=== PATIENT | male | born 1950 | race Caucasian/White ===

== ENCOUNTER 2020-10-01 16:13 | Outpatient (REF) | payer MEDICARE, SELFPAY ==
[2020-10-01 19:11] LABS: HCT 45.5 % (40.0-50.0); HGB 16.1 g/dL (13.5-17.5); MCH 33.1 pg (27.0-33.0); MCHC 35.4 % (32.0-36.0); MCV 93.6 fL (80-95); MPV 9.6 fL (8.0-11.0); Platelet Count 205 10^3/uL (130-400); RBC 4.86 10^6/uL (4.36-5.78); RDW 11.1 % (11.8-14.1); RDW-SD 38.2 fL; WBC 5.53 10^3/uL (4.4-10.8)
[2020-10-01 19:50] LABS: ALT 76 U/L (16-63); AST 58 U/L (15-37); Albumin 4.4 g/dL (3.4-5.0); Alkaline Phosphatase 97 U/L (46-116); Anion Gap 14.4 mmol/L (3-11); BUN 9 mg/dL (7-18); Bilirubin, Total 0.5 mg/dL (0.2-1.0); CO2 24.6 mmol/L (21.0-32.0); CREATININE 0.7 mg/dL (0.70-1.30); Calcium 9.6 mg/dL (8.5-10.1); Chloride 98 mmol/L (98-107); Glucose 106 mg/dL (74-106); HDL Cholesterol 77 mg/dL (40-60); LDL CHOLESTEROL 108 mg/dL (<100); Potassium 3.8 mmol/L (3.5-5.1); Sodium 137 mmol/L (136-145); TSH 2.94 uIU/mL (0.36-3.74); Total Protein 7.5 g/dL (6.4-8.2); Vitamin B12 434 pg/mL (193-986)
== END 2020-10-01 16:14 | disposition home or self-care (01) ==
LOC: NCHCN 16:13
PROVIDERS: PCP Nurse Practitioner Family; Visit Provider Nurse Practitioner Family
DX: I10 Essential (primary) hypertension (principal); Z83.49 Family history of other endocrine, nutritional and metabolic diseases; R41.3 Other amnesia; R41.89 Other symptoms and signs involving cognitive functions and awareness
CPT/HCPCS: 80053; 83721; 85027; 82607; 83718; 84443

== ENCOUNTER 2020-10-08 09:11 | Outpatient (REF) | payer MEDICARE, SELFPAY ==
[2020-10-08 15:34] LABS: Anion Gap 10.8 mmol/L (3-11); BUN 13 mg/dL (7-18); CO2 24.2 mmol/L (21.0-32.0); CREATININE 0.8 mg/dL (0.70-1.30); Chloride 98 mmol/L (98-107); Glucose 111 mg/dL (74-106); Potassium 4.4 mmol/L (3.5-5.1); Sodium 133 mmol/L (136-145)
== END 2020-10-08 09:12 | disposition home or self-care (01) ==
LOC: NCHCN 09:11
PROVIDERS: PCP Nurse Practitioner Family; Visit Provider Nurse Practitioner Family
DX: I10 Essential (primary) hypertension (principal)
CPT/HCPCS: 80048

== ENCOUNTER 2020-11-05 16:22 | Outpatient (REF) | payer MEDICARE, SELFPAY ==
[2020-11-05 21:42] LABS: Anion Gap 9.2 mmol/L (3-11); BUN 9 mg/dL (7-18); CO2 26.8 mmol/L (21.0-32.0); CREATININE 0.9 mg/dL (0.70-1.30); Calcium 9.3 mg/dL (8.5-10.1); Chloride 98 mmol/L (98-107); Glucose 94 mg/dL (74-106); Potassium 4.1 mmol/L (3.5-5.1); Sodium 134 mmol/L (136-145)
== END 2020-11-05 16:23 | disposition home or self-care (01) ==
LOC: NCHCN 16:22
PROVIDERS: PCP Nurse Practitioner Family; Visit Provider Nurse Practitioner Family
DX: I10 Essential (primary) hypertension (principal); R79.89 Other specified abnormal findings of blood chemistry
CPT/HCPCS: 80048

== ENCOUNTER 2023-03-22 16:46 | Inpatient (IN) | payer MEDICARE, SELFPAY ==
[2023-03-22] VITALS (29 sets, daily range): BP systolic 126–188; BP diastolic 77–118; PULSE 60–109; RESP 13–22; TEMP 36.3–37.1; O2SAT 94–100
--- NOTE | 2023-03-22 17:00 | DI.CT_ITS ---
Exam(s) CT HEAD WO EXAM: CT HEAD WO CLINICAL HISTORY: ams. TECHNIQUE: Imaging Protocol: Axial computed tomography images with coronal and sagittal reformatted images were created and reviewed COMPARISON: No exams were available for comparison FINDINGS: Ventricles and Extra axial spaces: Normal in size and morphology for the patient's age. Hemorrhage: None. Cerebral parenchyma: There are areas of decreased attenuation in the white matter consistent with sma ll vessel ischemic disease. 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 No acute territorial inf arct is seen. Midline shift: None. Brainstem/Cerebellum: Normal. Calvarium: Normal. Visualized Paranasal sinuses/Mastoids: Clear. Soft Tissues: Unremarkable. IMPRESSION: 1. No acute intracranial process. 2. Findings were discussed with the emergency department at 6:49 p.m. on 03/22/2023. RADIATION DOSE DELIVERED: Total DLP DATA REPOSITORY: All CT scans at this facility are submitted to the National Radiology Data Registry (NRDR) Dose Index Registry (DIR) with the [employer] (ACR). RADIATION OPTIMIZATION: All CT scans at this facility use at least one of these dose optimization te chniques: automated exposure control; mA and/or kV adjustment per patient size (includes targeted exa ms where dose is matched to clinical indication); or iterative reconstruction.
[2023-03-22 17:11] LABS: BE (Venous) -4 mmol/L (-2-3); HCO3 (Venous) 20 mmol/L (23-28); O2 Sat (Venous) 91 %; TCO2 (Venous) 17 mmol/L (24-29); pCO2 (Venous) 27 mmHg (41-51); pH (Venous) 7.48 (7.31-7.41); pO2 (Venous) 56 mmHg
[2023-03-22 17:14] LABS: Lactate 1.2 mmol/L (0.6-1.4)
[2023-03-22 17:16] LABS: Abs Immature Grans 0.05 10^3/uL (0.0-0.06); Absolute Basophil Count 0.03 10^3/uL (0.0-0.2); Absolute Eosinophil Count 0.22 10^3/uL (0.0-0.7); Absolute Lymphocyte Count 0.62 10^3/uL (1.2-3.4); Absolute Neutrophil Count 7.06 10^3/uL (1.2-6.7); Basophils % 0.3; Eosinophils % 2.6; HCT 44.4 % (40.0-50.0); HGB 15.9 g/dL (13.5-17.5); Immature Grans % 0.6; Lymphocytes % 7.2; MCH 31.6 pg (27.0-33.0); MCHC 35.8 % (32.0-36.0); MCV 88 fL (80-95); MPV 8.7 fL (8.0-11.0); Neutrophils % 82.3; Platelet Count 152 10^3/uL (130-400); RBC 5.03 10^6/uL (4.36-5.78); RDW 11.6 % (11.8-14.1); RDW-SD 37.6 fL; WBC 8.58 10^3/uL (4.4-10.8)
[2023-03-22] MEDS: CEFEPIME 1 GM in Normal Saline 50 ML IVPB (17:18)
[2023-03-22] MEDS: Lactated Ringers 500 ML 1000 ML IV (17:18)
[2023-03-22] MEDS: VANCOMYCIN 1,000 MG in Normal Saline 250 ML 166.6666 MG IVPB (17:30)
[2023-03-22 17:34] LABS: ALT 37 U/L (16-63); AST 31 U/L (15-37); Albumin 3.7 g/dL (3.4-5.0); Alkaline Phosphatase 77 U/L (46-116); Anion Gap 10.3 mmol/L (3-11); BUN 12 mg/dL (7-18); Bilirubin, Total 1.1 mg/dL (0.2-1.0); CO2 19.7 mmol/L (21.0-32.0); CREATININE 1.1 mg/dL (0.70-1.30); Calcium 9.2 mg/dL (8.5-10.1); Chloride 92 mmol/L (98-107); Estimated GFR 70.88 (mL/min/1.73m2); Glucose 110 mg/dL (74-106); Total Protein 7.5 g/dL (6.4-8.2); Troponin I < 50 ng/L (<or=60)
--- NOTE | 2023-03-22 17:34 | W.ED.GENAD ---
Discharge Plan Disposition Patient Disposition: Admit to [facility] Condition: Good Discharge Details Clinical Impression: Hyponatremia Admit Date/Time: 03/22/23 19:04 Admit Provider: Von Rm Attending Provider: Von Rm Primary Care Provider: Maye Lopez ED Provider: Berhane Bello Medical Decision Making Emergent evaluation of altered mental status. History is difficult to obtain from the patient as well as the . The patient reportedly had fever at urgent care but is afebrile here. Initial differential includes sepsis, intracranial process, drug intoxication or withdrawal symptoms. Given that the patient had fever at urgent care and was given Motrin prior to arrival here, I will initiate sepsis protocol including fluids, cultures, broad-spectrum antibiotics. Lab work obtained. Viral testing is negative. Urinalysis does not show signs of infection. His CBC does not demonstrate leukocytosis anemia or thrombocytopenia. His CMP is concerning for hyponatremia. I wonder if this may be related to alcohol use. A head CT was obtained to evaluate for intracranial process such as hydrocephalus. This is unremarkable. He has confusion, but no seizure activity. I have sent urine electrolytes to determine etiology of his hyponatremia. At this time he does not require hypertonic saline. I discussed with the hospitalist and the patient will be admitted to their service for further management. Medical Records Medical records reviewed: Yes I reviewed the patient's medical records. Lab Data Lab results reviewed: Yes I reviewed the patient's lab results. HPI General Date/Time Provider Initiated Documentation: 03/22/23 16:50. Limitations to Documentation: altered mental status. Information obtained by: patient, family and EMS. HPI Narrative: 73-year-old gentleman without known past medical history presents for evaluation of confusion. Patient reports that he is not going to the doctor in many years. He has no known medical diagnoses or takes any medication. He states that his told him he had to come to the doctor. He was evaluated at urgent care earlier. They report that he had a fever. Viral testing and urinalysis were negative. They sent the patient here for further evaluation. The arrives and states that over the last 1 to 2 weeks she has noted that the patient seems more confused. He is sleeping a lot. They deny any trauma. There is questionable daily alcohol use. Related Data Home Medications Medication Instructions Recorded Confirmed Unknown [No Known Home Meds] 03/22/23 03/22/23 Allergies Allergy/AdvReac Type Severity Reaction Status Date / Time No Known Allergies Allergy Unverified 03/22/23 16:59 General Stated Complaint: GenMedical SHARATH: 3 PFSH All Active Problems Discharge planning issues (Acute) DVT prophylaxis (Acute) Hypertension (Chronic) Fever (Acute) Hyponatremia (Acute) Social History Smoking/Tobacco Use Status: Never Smoking risk assessment performed?: Yes Alcohol Intake: current Alcohol Intake frequency: a few times a week Alcohol type: beer Drug use: Never Substance use type: does not use Housing: house Do you feel safe at home: Yes Do you feel safe in your relationship?: Yes Exam Narrative Exam Narrative: Review of Systems: All systems reviewed & are unremarkable except as noted in HPI and below: CONSTITUTIONAL: Alert , confused, unable to answer simple questions Well-developed, no acute distress HEENT: NACT EYES: PERRL, no conjunctival injection EARS: no external abnormality NOSE nares patent MOUTH dry MM NECK: Symmetric, trachea midline, No thyromegaly THROAT oropharynx clear CVS: RRR, No murmurs or gallops. Peripheral pulses 2+ and equal in all extremities Brisk capillary refill in all extremities. No peripheral edema RESP: Unlabored respiratory effort, Clear to auscultation bilaterally No wheezes rales or rhonchi GI: Soft, Nontender, Nondistended, No organomegaly MSK: Extremities with full range of motion, no deformity or TTP SKIN: Warm, Dry. No rashes or lesions. 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 Sensation grossly intact Normal strength throughout Course Vital Signs Vital signs: Vital Signs Temperature 37.1 C 03/22/23 16:46 Pulse 107 H 03/22/23 16:46 Respiratory Rate 17 03/22/23 16:46 Blood Pressure 146/96 H 03/22/23 16:46 Pulse Oximetry 98 03/22/23 16:46 Temperature 37.1 C 03/22/23 16:46 Temperature Source Oral 03/22/23 16:46 Pulse 107 H 03/22/23 16:46 Respiratory Rate 18 03/22/23 16:55 Respiratory Effort Normal 03/22/23 16:55 Respiratory Depth Normal 03/22/23 16:55 Respiratory Pattern Normal 03/22/23 16:55 Blood Pressure 146/96 H 03/22/23 16:46 Blood Pressure Position Sitting 03/22/23 16:46 Pulse Oximetry 95 03/22/23 16:55 Oxygen Delivery Method Room Air 03/22/23 16:55 Oxygen Flow Rate 0 03/22/23 16:46 Pain Level 0 03/22/23 16:46 Lab/Test Results Lab/Test Results: 03/22/23 17:25 Blood Blood Culture - Pending 03/22/23 17:05 Blood Blood Culture - Pending Laboratory Tests Range/Units 03/22/23 17:05 WBC (4.4-10.8) 10^3/uL 8.58 RBC (4.36-5.78) 10^6/uL 5.03 Hgb (13.5-17.5) g/dL 15.9 Hct (40.0-50.0) % 44.4 MCV (80-95) fL 88 MCH (27.0-33.0) pg 31.6 MCHC (32.0-36.0) % 35.8 RDW (11.8-14.1) % 11.6 L Plt Count (130-400) 10^3/uL 152 MPV (8.0-11.0) fL 8.7 Immature Gran % 0.6 Neutrophils % 82.3 Lymphocytes % 7.2 Monocytes % 7.0 Eosinophils % 2.6 Basophils % 0.3 Nucleated RBC % (0.0-0.3) % 0.0 Absolute Neutrophils (1.2-6.7) 10^3/uL 7.06 H Absolute Lymphocytes (1.2-3.4) 10^3/uL 0.62 L Absolute Monocytes (0.1-0.8) 10^3/uL 0.60 Absolute Eosinophils (0.0-0.7) 10^3/uL 0.22 Absolute Basophils (0.0-0.2) 10^3/uL 0.03 VBG pH (7.31-7.41) 7.48 H VBG pCO2 (41-51) mmHg 27 L VBG pO2 mmHg 56 VBG HCO3 (23-28) mmol/L 20 L VBG Total CO2 (24-29) mmol/L 17 L VBG O2 Saturation % 91 VBG Base Excess (-2-3) mmol/L -4 L VBG Lactate (0.6-1.4) mmol/L 1.2 PAWSS Have you Been Recently Intoxicated or Drunk Within the Last 30 days?: No Have you Ever Experienced Previous Episodes of Alcohol Withdrawal?: No Have you ever Experienced Withdrawal Seizures?: No Have you ever Experienced Delirium Tremens(DT)s?: No Have you ever undergone Alcohol Rehabilitation Treatment (i.e, inpt ot outpatient treatment programs)?: No Have you ever Experienced Blackouts?: No Have you ever Combined Alcohol with other Downers within the last 90 days?: No Have you ever Combined Alcohol with any other Substance of Abuse during the last 90 days?: No Result: 0
[2023-03-22 17:36] LABS: Sodium 122 mmol/L (136-145)
[2023-03-22 17:50] LABS: Bilirubin Negative (Negative); Blood Trace-lysed (Negative); Clarity Clear (Clear); Glucose Negative (Negative); Ketones 40 mg/dL (Negative); Leukocyte Esterase Negative (Negative); Nitrite Negative (Negative); Specific Gravity 1.015 (1.005-1.025); Urobilinogen 0.2 mg/dL (Up to 0.2)
[2023-03-22 17:53] LABS: Bacteria Rare HPF (Negative); Crystals Negative HPF (Negative); Epithelial Cells Rare HPF (Negative); Other Cells Rare Renal (Negative); RBC 0-2 HPF (0-2)
[2023-03-22 17:54] LABS: C & S Indicated? C&S Done As Ordered; Casts Negative LPF (Negative); Mucus Moderate (Negative)
[2023-03-22 17:54] LABS: ETHANOL BLOOD < 3.0 mg/dL (<10)
[2023-03-22 18:10] LABS: COVID-19 PCR Negative (Negative); Influenza A PCR Negative (Negative); Influenza B PCR Negative (Negative); RSV PCR Negative (Negative)
[2023-03-22 18:13] LABS: Source NASOPHARYNX
[2023-03-22 18:49] LABS: Creatinine,Urine 180.55 mg/dL; Sodium, Urine 17 mmol/L
[2023-03-22 20:21] LABS: Lactate 1.4 mmol/L (0.6-1.4)
[2023-03-22 20:33] LABS: Anion Gap 7.6 mmol/L (3-11); BUN 13 mg/dL (7-18); CO2 23.4 mmol/L (21.0-32.0); Calcium 8.9 mg/dL (8.5-10.1); Chloride 97 mmol/L (98-107); Estimated GFR 79.47 (mL/min/1.73m2); Glucose 104 mg/dL (74-106); Potassium 3.6 mmol/L (3.5-5.1); Sodium 128 mmol/L (136-145)
--- NOTE | 2023-03-22 22:12 | W.PM.HP.N ---
Date of service: 03/22/23 Time of Service: 22:35 Assessment and Plan Assessment and plan (1) Hyponatremia: Status: Acute Assessment and plan: This appears to be hypotonic hyponatremia. Clinically he is euvolemic, though he did increase the sodium after hydration and his urine sodium is quite low suggesting and element of dehydration as the cause. I do think this was the cause of his mental status changes as he seems to have improved along with the sodium increase. He also did indorse drinking a lot of water in the past couple weeks as he has been drinking less alcohol, and high risk alcohol consumption prior to the past 2 weeks, so there may also be some polydypsia. No indication for hypertonic saline now. Fluid restrict for now. (2) Fever: Status: Acute Assessment and plan: This is documented from [facility] but has not recurred. Normal WBC and procacitonin reassuing. Labs not c/w anaplasmosis. He was cultured and started on empiric antibiotics, continue until cultures negative at ~48hr. STop after that if still no signs infection. Qualifiers: Fever type: unspecified Qualified Code(s): R50.9 - Fever, unspecified (3) Hypertension: Status: Chronic Assessment and plan: BP is quite high. He has not seen a doctor in hears. Start ARB and titrate. Add CCB next, avoid diuretic given low sodium. Qualifiers: Hypertension type: primary hypertension Qualified Code(s): I10 - Essential (primary) hypertension (4) Alcohol use: Status: Acute Assessment and plan: High risk use, denies symptoms of AUD. I encouraged moderation, discussed. (5) DVT prophylaxis: Status: Acute Assessment and plan: LMWH (6) Discharge planning issues: Status: Acute Assessment and plan: As above I think 48 hours monitoring given initial presentation of shaking with fever is prudent. He will need to establish with a PCP upon discharge. History of Present Illness History of Present Illness Chief Complaint: deminished mental status Narrative: 73 yo M with no known chronic medical history, but who hasn't had medical care in over 10 years, presented to [facility] earlier on the day of admission with 1-2 weeks of feeling cloudy headed and low energy. Upon arrival he was feeling some shakiness and warmth, did not feel an overt fever, but tempurature documented at 102.9. He was given 400mg of ibuprofen and sent to the ED. He cannot identify a trigger for his symptoms. No change in activity or diet. He did cut back on his usual alcohol since he started feeling off, has only had 1-2 beers during the past week rather than his usual 3-4/night and has been drinking more water instead. He has never had withdrawal symptoms. He had not abnormal movement or tremor today. No headache, cold symptoms, or other signs of focal infection. Review of Systems Constitutional Constitutional: Denies anorexia, Denies body ache(s), Reports chills, Reports fatigue, Denies fever(s), Denies headache(s), Reports lethargy, Denies poor appetite, Denies weight gain and Denies weight loss Eyes Eyes: Denies change in vision, Denies diplopia and Denies irritation ENT Ears, Nose, Mouth, and Throat: Denies dizziness, Denies headache(s), Denies nasal congestion, Denies nasal discharge and Denies sore throat Cardiovascular Cardiovascular: Denies chest pain, Denies leg edema, Denies palpitations and Denies orthopnea Respiratory Respiratory: Denies cough, Denies excessive phlegm production and Denies wheezing Gastrointestinal Gastrointestinal: Denies abdominal pain, Denies melena, Denies hematochezia, Denies constipation, Denies heartburn, Denies diarrhea, Denies nausea and Denies vomiting Genitourinary Genitourinary: Denies hematuria, Denies dysuria and Denies urinary incontinence Musculoskeletal Musculoskeletal: Denies arthralgias and Denies joint swelling Integumentary/Breasts Skin/Breast: Denies rash and Denies skin ulcer Neurologic Neurologic: Denies dizziness, Denies headache(s) and Denies sensory deficit Psychiatric Psychiatric: Denies depression, Denies mood swings and Denies hallucinations Endocrine Endocrine: Reports fatigue and Denies palpitations Hematologic/Lymphatic Hematologic/Lymphatic: Denies easy bleeding Allergic/Immunologic Allergic/Immunologic: Denies wheezing PFSH All Active Problems (Updated 03/23/23 @ 01:09 by Von Rm) Alcohol use (Acute) Discharge planning issues (Acute) DVT prophylaxis (Acute) Hypertension (Chronic) Fever (Acute) Hyponatremia (Acute) Surgical History Status post left shoulder hemiarthroplasty Family History Mother Cancer from cancer in brain, from lungs? Father Alcohol use disorder Social History Smoking/Tobacco Use Status: Never Smoking risk assessment performed?: Yes Alcohol Intake: current Alcohol Intake frequency: a few times a week Alcohol type: beer Drug use: Never Substance use type: does not use Housing: house Do you feel safe at home: Yes Do you feel safe in your relationship?: Yes Additional Social history: Lives with Nova on [address]. Retired from working at [employer]. Has a [employer] Meds Allergies and Home Medications Allergies Allergy/AdvReac Type Severity Reaction Status Date / Time No Known Allergies Allergy Unverified 03/22/23 16:59 Home Medications Medication Instructions Recorded Confirmed Type Unknown [No Known Home Meds] 03/22/23 03/22/23 History Exam Narrative Exam Narrative: GEN: Alert and oriented x 3, pleasant and cooperative, gives linear history. No acute distress at rest. HEENT: Head atraumatic. Conjunctiva clear, no icterus. PEERL, EOMI. no rhinorrhea. MMM, OP benign. Neck is supple with no masses or lymphadenopathy, trachea midline LUNGS: CTAB with normal effort CV: RRR with no murmurs, gallops, or rubs. ABD: +BS, soft, NT/ND, no masses EXT: no cyanosis, clubbing, or edema MSK: No joint redness or swelling NEURO: CN 2-12 grossly intact. Normal movement and sensation of 4 extremities. Symmetric DTRs. Normal speech and coordination SKIN: No rashes or open wounds. PSYCH: normal mood and affect, nl thought process Results Imaging Imaging Studies: Head CT: . No acute intracranial process. Labs 03/22/23 17:05 03/22/23 20:18 Labs: Laboratory Results - last 24 hr 03/22/23 03/22/23 03/22/23 17:05 17:25 17:40 WBC 8.58 RBC 5.03 Hgb 15.9 Hct 44.4 MCV 88 MCH 31.6 MCHC 35.8 RDW 11.6 L Plt Count 152 MPV 8.7 Immature Gran % 0.6 Neutrophils % 82.3 Lymphocytes % 7.2 Monocytes % 7.0 Eosinophils % 2.6 Basophils % 0.3 Nucleated RBC % 0.0 Absolute Neutrophils 7.06 H Absolute Lymphocytes 0.62 L Absolute Monocytes 0.60 Absolute Eosinophils 0.22 Absolute Basophils 0.03 VBG pH 7.48 H VBG pCO2 27 L VBG pO2 56 VBG HCO3 20 L VBG Total CO2 17 L VBG O2 Saturation 91 VBG Base Excess -4 L VBG Lactate 1.2 Sodium 122 L* Potassium 4.0 Chloride 92 L Carbon Dioxide 19.7 L Anion Gap 10.3 BUN 12 Creatinine 1.1 Est GFR (CKD-EPI 2020) 70.88 Glucose 110 H Calcium 9.2 Total Bilirubin 1.1 H AST 31 ALT 37 Alkaline Phosphatase 77 Troponin I < 50 Total Protein 7.5 Albumin 3.7 Procalcitonin 1.0 Urine Color Yellow Urine Clarity Clear Urine pH 6.0 Ur Specific [place] 1.015 Urine Protein Trace H Urine Ketones 40 H Urine Blood Trace-lysed H Urine Nitrite Negative Urine Bilirubin Negative Urine Urobilinogen 0.2 Ur Leukocyte Esterase Negative Urine RBC 0-2 Urine WBC 3-5 Ur Epithelial Cells Rare Urine Crystals Negative Urine Bacteria Rare Urine Casts Negative Urine Mucus Moderate Urine Other Rare Renal Ur Culture Indicated? C&S Done As Ordered Ur Random Creatinine Ur Random Sodium Urine Glucose Negative Ethyl Alcohol < 3.0 COVID-19 Source NASOPHARYNX SARS-CoV-2 (PCR) Negative Influenza Type A (PCR) Negative Influenza Type B (PCR) Negative RSV (PCR) Negative 03/22/23 03/22/23 17:50 20:18 WBC RBC Hgb Hct MCV MCH MCHC RDW Plt Count MPV Immature Gran % Neutrophils % Lymphocytes % Monocytes % Eosinophils % Basophils % Nucleated RBC % Absolute Neutrophils Absolute Lymphocytes Absolute Monocytes Absolute Eosinophils Absolute Basophils VBG pH VBG pCO2 VBG pO2 VBG HCO3 VBG Total CO2 VBG O2 Saturation VBG Base Excess VBG Lactate 1.4 Sodium 128 L Potassium 3.6 Chloride 97 L Carbon Dioxide 23.4 Anion Gap 7.6 BUN 13 Creatinine 1.0 Est GFR (CKD-EPI 2020) 79.47 Glucose 104 Calcium 8.9 Total Bilirubin AST ALT Alkaline Phosphatase Troponin I Total Protein Albumin Procalcitonin Urine Color Urine Clarity Urine pH Ur Specific [place] Urine Protein Urine Ketones Urine Blood Urine Nitrite Urine Bilirubin Urine Urobilinogen Ur Leukocyte Esterase Urine RBC Urine WBC Ur Epithelial Cells Urine Crystals Urine Bacteria Urine Casts Urine Mucus Urine Other Ur Culture Indicated? Ur Random Creatinine 180.55 Ur Random Sodium 17 Urine Glucose Ethyl Alcohol COVID-19 Source SARS-CoV-2 (PCR) Influenza Type A (PCR) Influenza Type B (PCR) RSV (PCR) Last Vital Signs Temp 36.3 C L 03/22/23 21:12 Pulse 66 03/22/23 21:12 Resp 16 03/22/23 21:12 BP 188/89 H 03/22/23 21:12 Pulse Ox 100 03/22/23 21:12 PAWSS Have you Been Recently Intoxicated or Drunk Within the Last 30 days?: No Have you Ever Experienced Previous Episodes of Alcohol Withdrawal?: No Have you ever Experienced Withdrawal Seizures?: No Have you ever Experienced Delirium Tremens(DT)s?: No Have you ever undergone Alcohol Rehabilitation Treatment (i.e, inpt ot outpatient treatment programs)?: No Have you ever Experienced Blackouts?: No Have you ever Combined Alcohol with other Downers within the last 90 days?: No Have you ever Combined Alcohol with any other Substance of Abuse during the last 90 days?: No Result: 0 Time Spent Time spent with Patient: 55-74 minutes Time was spent: preparing to see the patient(eg.review tests), obtaining and/or reviewing separately otained hiistory, ordering medications,tests, procedures, referring, communicating with other health assisted living care manager, indepentently interpreting results and counseling the patient
[2023-03-23] VITALS (13 sets, daily range): BP systolic 118–200; BP diastolic 70–90; PULSE 83–109; RESP 16–19; TEMP 36.3–40.3; O2SAT 96–100
--- NOTE | 2023-03-23 | DI.US_ITS ---
Exam(s) US ABDOMEN EXAM: US ABDOMEN CLINICAL HISTORY: question of cirrhosis TECHNIQUE: Ultrasound abdomen performed using standard protocol. COMPARISON: No exams were available for comparison FINDINGS: LIVER: Left lobe somewhat obscured by overlying bowel gas. Normal size. Slightly increased echogeni city. Echotexture appears homogeneous. No nodularity of the liver contour. No focal liver lesions are seen. Hepatopetal flow in the portal vein. GALLBLADDER: No evidence of cholelithiasis. No evidence of wall thickening. No pericholecystic fluid identified. CRYSTAL'S SIGN: Negative. BILIARY SYSTEM: No intrahepatic or extrahepatic biliary ductal dilation. KIDNEYS: Kidneys are symmetric in size. No evidence of renal calculi. No evidence of hydronephrosis. No renal mass or cyst identified. Focal area of scarring laterally in the right kidney. PANCREAS: Normal where visualized. SPLEEN: Not enlarged. ABDOMINAL AORTA AND IVC: Visualized portions normal caliber. ASCITES: None seen. IMPRESSION: Mildly increased liver echogenicity may indicate hepatic steatosis. No findings to suggest cirrhosis . DATA REPOSITORY:
--- NOTE | 2023-03-23 | DI.RAD_ITS ---
Exam(s) XR PORTABLE CHEST AP EXAM: XR PORTABLE CHEST AP CLINICAL HISTORY: fever, ? PNA TECHNIQUE: 2D digital imaging was performed of the chest. One image was obtained. An AP view was ob tained. COMPARISON: No exams were available for comparison FINDINGS: MEDIASTINUM: Normal. HEART: Normal. PULMONARY VASCULATURE: Normal. LUNGS: Clear. PLEURAL SPACE: No pleural effusion or pneumothorax. BONE:Within normal limits for the patient's age. OTHER FINDINGS:Normal. IMPRESSION: No acute pulmonary findings. DATA REPOSITORY: RADIATION DOSE DELIVERED:
[2023-03-23 05:12] LABS: Abs Immature Grans 0.01 10^3/uL (0.0-0.06); Absolute Basophil Count 0.01 10^3/uL (0.0-0.2); Absolute Lymphocyte Count 0.42 10^3/uL (1.2-3.4); Absolute Monocyte Count 0.28 10^3/uL (0.1-0.8); Basophils % 0.2; HCT 45.5 % (40.0-50.0); Immature Grans % 0.2; Lymphocytes % 8.4; MCH 31.3 pg (27.0-33.0); MCHC 35.2 % (32.0-36.0); MCV 89 fL (80-95); Monocytes % 5.6; Neutrophils % 85.6; Platelet Count 101 10^3/uL (130-400); RBC 5.11 10^6/uL (4.36-5.78); RDW 11.5 % (11.8-14.1); RDW-SD 37.4 fL; WBC 5.02 10^3/uL (4.4-10.8)
[2023-03-23 05:25] LABS: Vancomycin, Random 5.3 ug/mL
[2023-03-23] MEDS: Multivitamin w/Minerals TAB 1 TAB PO (08:23)
[2023-03-23] MEDS: Thiamine 100 MG TAB PO (08:23)
[2023-03-23 08:45] LABS: Anion Gap 8.3 mmol/L (3-11); BUN 12 mg/dL (7-18); CO2 22.7 mmol/L (21.0-32.0); CREATININE 1.2 mg/dL (0.70-1.30); Calcium 8.9 mg/dL (8.5-10.1); Chloride 97 mmol/L (98-107); Estimated GFR 63.85 (mL/min/1.73m2); Glucose 129 mg/dL (74-106); Magnesium 2.2 mg/dL (1.8-2.4); Potassium 3.7 mmol/L (3.5-5.1); Sodium 128 mmol/L (136-145)
[2023-03-23 08:59] LABS: ALT 34 U/L (16-63); AST 34 U/L (15-37); Albumin 3.3 g/dL (3.4-5.0); Alkaline Phosphatase 74 U/L (46-116); Bilirubin, Direct 0.3 mg/dL (0.0-0.2); Bilirubin, Total 1.2 mg/dL (0.2-1.0); TSH (W/Ref FT4) 1.04 uIU/mL (0.36-3.74); Total Protein 7.1 g/dL (6.4-8.2)
[2023-03-23] MEDS: Acetaminophen 325 MG TAB PO ×3 (11:17→23:43)
--- NOTE | 2023-03-23 11:28 | PDOC.CMIN ---
Date of service: 03/23/23 Time of Service: 11:28 Care Management Initial Assmt Initial Assessment REASON FOR HOSPITALIZATION:: Hyponatremia PREVIOUS FUNCTIONAL STATUS/SOCIAL/FAMILY SUPPORTS:: Resides in [facility], with , [place]. Independent at baseline in community. CURRENT FUNCTIONAL STATUS:: Remains inpatient, Arnulfo was lying in bed, Nova at bedside. The couple shared concerns about affording treatment and medications. Per MD, Arnulfo refused certain treatments due to financial concerns. Financial assistance and WILIAM engaged; patient and refused, frankly stating they would not pursue financial support. Per WILIAM Schmidt, couple is likely over income for most supports and unwilling to engage. ADVANCE DIRECTIVES:: None on file. Has patient been provided with info about the portal/API?: No Did the patient sign up for the portal?: No CODE STATUS:: Full Code INSURANCE COVERAGE / FINANCIAL ISSUES:: Medicare A only PRIMARY CARE PHYSICIAN:: Maye Lopez POTENTIAL DISCHARGE NEEDS:: Follow up appointments, WILIAM referral for evaluation of additional supports; Arnulfo shares concerns about affording further treatment; [facility] A only PATIENT/FAMILY EDUCATION NEEDS:: Review discharge instructions, discuss Ask Me Three. ANTICIPATED BARRIERS TO DISCHARGE:: None identified. TRANSPORTATION:: Via private vehicle with family PLAN:: Arnulfo will return home when ready per MD. CM continues to follow. PFSH All Active Problems (Updated 03/23/23 @ 13:46 by Veda Davila MD) Thrombocytopenia (Chronic) Dehydration (Acute) Hyperbilirubinemia (Acute) Alcohol use (Acute) Discharge planning issues (Acute) DVT prophylaxis (Acute) Hypertension (Chronic) Fever (Acute) Hyponatremia (Acute) Surgical History Status post left shoulder hemiarthroplasty Family History Mother Cancer from cancer in brain, from lungs? Father Alcohol use disorder Social History Smoking/Tobacco Use Status: Never Smoking risk assessment performed?: Yes Alcohol Intake: current Alcohol Intake frequency: a few times a week Alcohol type: beer Drug use: Never Substance use type: does not use Housing: house Do you feel safe at home: Yes Do you feel safe in your relationship?: Yes Additional Social history: Lives with Nova on [address]. Retired from working at [employer]. Has a small farm
--- NOTE | 2023-03-23 13:39 | PGE_ITS ---
Date of Service Date of service: 03/23/23 Time of Service: 13:39 Assessment and Plan Assessment and plan (1) Fever: Status: Acute Assessment and plan: I suspect that the patient has either a bacteremia or a tick-borne illness. Doxycycline has been added to his vancomycin and cefepime. I have increased the dose of cefepime. Tick studies are pending. Qualifiers: Fever type: unspecified Qualified Code(s): R50.9 - Fever, unspecified (2) Hyponatremia: Status: Acute Assessment and plan: I think the patient actually needs sodium and MIVF. He has been having fevers and is clinically quite dehydrated. D/c fluid restriction and start LR. Recheck sodim at 6 pm. (3) Thrombocytopenia: Status: Chronic Assessment and plan: D/c lovenox and check HIT (4) Hypertension: Status: Chronic Assessment and plan: The patient's BP is 157/87. He was given an ARB last night, but I worry about that being a factor for his sodiums. I think amlodipine will be safer. Qualifiers: Hypertension type: primary hypertension Qualified Code(s): I10 - Essential (primary) hypertension (5) Alcohol use: Status: Acute Assessment and plan: The patient states he stopped drinking recently. He does not have any evidence of alcohol withdrawal. Supplement thiamine, MVI. (6) Hyperbilirubinemia: Status: Acute Assessment and plan: Check US abdomen. (7) Dehydration: Status: Acute Assessment and plan: D/c fluid restriction and resume IVF. The patient is febrile and appears clinically dry. (8) Discharge planning issues: Status: Acute Assessment and plan: Full code I have expressed the patient's financial concerns to care management who will address them with the patient. (9) DVT prophylaxis: Status: Acute Assessment and plan: SCDs Hold chemical DVT ppx in light of thrombocytopenia while on lovenox (HIT panel pending). Subjective Subjective Interval history since last seen: Febrile to 40.3 today. States he does not feel sick and would like to go home and go hunting. He does report having found some ticks on him, but not embedded into him. Denies pain, dizziness, CP, SOB, n/v. Thirsty. Exam Narrative Exam Narrative: General: Middle-aged male who is, curiously, not shivering, A&Ox3, [place], appears anxious HEENT: EOMI, dry MM Heart: RRR, subtle [place] Lungs: CTAB Abdomen: soft, nontender, nondistended Extremities: no edema BLEs Objective Last Vital Signs Temp 37.2 C 03/23/23 13:09 Pulse 105 H 03/23/23 11:20 Resp 18 03/23/23 11:20 BP 157/87 H 03/23/23 11:20 Pulse Ox 97 03/23/23 11:20 Laboratory Results - last 24 hr 03/22/23 03/22/23 03/22/23 17:05 17:25 17:40 WBC 8.58 RBC 5.03 Hgb 15.9 Hct 44.4 MCV 88 MCH 31.6 MCHC 35.8 RDW 11.6 L Plt Count 152 MPV 8.7 Immature Gran % 0.6 Neutrophils % 82.3 Lymphocytes % 7.2 Monocytes % 7.0 Eosinophils % 2.6 Basophils % 0.3 Nucleated RBC % 0.0 Absolute Neutrophils 7.06 H Absolute Lymphocytes 0.62 L Absolute Monocytes 0.60 Absolute Eosinophils 0.22 Absolute Basophils 0.03 VBG pH 7.48 H VBG pCO2 27 L VBG pO2 56 VBG HCO3 20 L VBG Total CO2 17 L VBG O2 Saturation 91 VBG Base Excess -4 L VBG Lactate 1.2 Sodium 122 L* Potassium 4.0 Chloride 92 L Carbon Dioxide 19.7 L Anion Gap 10.3 BUN 12 Creatinine 1.1 Est GFR (CKD-EPI 2020) 70.88 Glucose 110 H Calcium 9.2 Magnesium Total Bilirubin 1.1 H Conjugated Bilirubin AST 31 ALT 37 Alkaline Phosphatase 77 Troponin I < 50 Total Protein 7.5 Albumin 3.7 Procalcitonin 1.0 TSH Urine Color Yellow Urine Clarity Clear Urine pH 6.0 Ur Specific [place] 1.015 Urine Protein Trace H Urine Ketones 40 H Urine Blood Trace-lysed H Urine Nitrite Negative Urine Bilirubin Negative Urine Urobilinogen 0.2 Ur Leukocyte Esterase Negative Urine RBC 0-2 Urine WBC 3-5 Ur Epithelial Cells Rare Urine Crystals Negative Urine Bacteria Rare Urine Casts Negative Urine Mucus Moderate Urine Other Rare Renal Ur Culture Indicated? C&S Done As Ordered Ur Random Creatinine Ur Random Sodium Urine Glucose Negative Random Vancomycin Ethyl Alcohol < 3.0 COVID-19 Source NASOPHARYNX SARS-CoV-2 (PCR) Negative Influenza Type A (PCR) Negative Influenza Type B (PCR) Negative RSV (PCR) Negative 03/22/23 03/22/23 03/23/23 17:50 20:18 05:04 WBC 5.02 RBC 5.11 Hgb 16.0 Hct 45.5 MCV 89 MCH 31.3 MCHC 35.2 RDW 11.5 L Plt Count 101 L MPV 9.0 Immature Gran % 0.2 Neutrophils % 85.6 Lymphocytes % 8.4 Monocytes % 5.6 Eosinophils % 0.0 Basophils % 0.2 Nucleated RBC % 0.0 Absolute Neutrophils 4.30 Absolute Lymphocytes 0.42 L Absolute Monocytes 0.28 Absolute Eosinophils 0.00 Absolute Basophils 0.01 VBG pH VBG pCO2 VBG pO2 VBG HCO3 VBG Total CO2 VBG O2 Saturation VBG Base Excess VBG Lactate 1.4 Sodium 128 L Potassium 3.6 Chloride 97 L Carbon Dioxide 23.4 Anion Gap 7.6 BUN 13 Creatinine 1.0 Est GFR (CKD-EPI 2020) 79.47 Glucose 104 Calcium 8.9 Magnesium Total Bilirubin Conjugated Bilirubin AST ALT Alkaline Phosphatase Troponin I Total Protein Albumin Procalcitonin TSH Urine Color Urine Clarity Urine pH Ur Specific [place] Urine Protein Urine Ketones Urine Blood Urine Nitrite Urine Bilirubin Urine Urobilinogen Ur Leukocyte Esterase Urine RBC Urine WBC Ur Epithelial Cells Urine Crystals Urine Bacteria Urine Casts Urine Mucus Urine Other Ur Culture Indicated? Ur Random Creatinine 180.55 Ur Random Sodium 17 Urine Glucose Random Vancomycin 5.3 Ethyl Alcohol COVID-19 Source SARS-CoV-2 (PCR) Influenza Type A (PCR) Influenza Type B (PCR) RSV (PCR) 03/23/23 08:20 WBC RBC Hgb Hct MCV MCH MCHC RDW Plt Count MPV Immature Gran % Neutrophils % Lymphocytes % Monocytes % Eosinophils % Basophils % Nucleated RBC % Absolute Neutrophils Absolute Lymphocytes Absolute Monocytes Absolute Eosinophils Absolute Basophils VBG pH VBG pCO2 VBG pO2 VBG HCO3 VBG Total CO2 VBG O2 Saturation VBG Base Excess VBG Lactate Sodium 128 L Potassium 3.7 Chloride 97 L Carbon Dioxide 22.7 Anion Gap 8.3 BUN 12 Creatinine 1.2 Est GFR (CKD-EPI 2020) 63.85 Glucose 129 H Calcium 8.9 Magnesium 2.2 Total Bilirubin 1.2 H Conjugated Bilirubin 0.3 H AST 34 ALT 34 Alkaline Phosphatase 74 Troponin I Total Protein 7.1 Albumin 3.3 L Procalcitonin TSH 1.04 Urine Color Urine Clarity Urine pH Ur Specific [place] Urine Protein Urine Ketones Urine Blood Urine Nitrite Urine Bilirubin Urine Urobilinogen Ur Leukocyte Esterase Urine RBC Urine WBC Ur Epithelial Cells Urine Crystals Urine Bacteria Urine Casts Urine Mucus Urine Other Ur Culture Indicated? Ur Random Creatinine Ur Random Sodium Urine Glucose Random Vancomycin Ethyl Alcohol COVID-19 Source SARS-CoV-2 (PCR) Influenza Type A (PCR) Influenza Type B (PCR) RSV (PCR) Objective Narrative Objective Narrative: CXR: No acute pulmonary findings. PAWSS Have you Been Recently Intoxicated or Drunk Within the Last 30 days?: No Have you Ever Experienced Previous Episodes of Alcohol Withdrawal?: No Have you ever Experienced Withdrawal Seizures?: No Have you ever Experienced Delirium Tremens(DT)s?: No Have you ever undergone Alcohol Rehabilitation Treatment (i.e, inpt ot outpatient treatment programs)?: No Have you ever Experienced Blackouts?: No Have you ever Combined Alcohol with other Downers within the last 90 days?: No Have you ever Combined Alcohol with any other Substance of Abuse during the last 90 days?: No Result: 0 Time Spent with Patient Time Spent with Patient: 35-49 minutes Time was spent: preparing to see the patient(eg.review tests), obtaining and/or reviewing separately otained hiistory, ordering medications,tests, procedures, referring, communicating with other health director of primary care, indepentently interpreting results, counseling the patient and care coordination
[2023-03-23] MEDS: Normal Saline Flush 10 ML SYR IVP (14:05)
[2023-03-23] MEDS: Lactated Ringers 1,000 ML 125 ML IV ×2 (14:06→23:47)
[2023-03-23] MEDS: CEFEPIME 2 GM in Normal Saline 100 ML IVPB (14:57)
[2023-03-23] MEDS: amLODIPine 5 MG TAB PO (16:24)
[2023-03-23 18:30] LABS: Sodium 127 mmol/L (136-145)
[2023-03-23 18:33] LABS: MRSA PCR Negative (Negative)
[2023-03-23] MEDS: DOXYCYCLINE 100 MG in Normal Saline 100 ML IVPB (19:23)
[2023-03-24] MEDS: CEFEPIME 2 GM in Normal Saline 100 ML IVPB ×3 (01:09→17:19)
[2023-03-24 03:30] VITALS: BP 129/72; PULSE 68; RESP 16; TEMP 35.6; O2SAT 99
[2023-03-24] MEDS: VANCOMYCIN/WATER (PEG) 1 GM/200 ML BAG IV (05:19)
[2023-03-24 06:09] LABS: HCT 40.7 % (40.0-50.0); HGB 14.5 g/dL (13.5-17.5); MCH 31.9 pg (27.0-33.0); MCHC 35.6 % (32.0-36.0); MCV 90 fL (80-95); MPV 10.3 fL (8.0-11.0); RBC 4.55 10^6/uL (4.36-5.78); RDW 11.7 % (11.8-14.1); RDW-SD 38.5 fL
[2023-03-24 06:40] LABS: Vancomycin, Trough < 0.8 ug/mL (10.0-20.0)
[2023-03-24 06:44] LABS: ALT 38 U/L (16-63); AST 45 U/L (15-37); Albumin 2.6 g/dL (3.4-5.0); Alkaline Phosphatase 62 U/L (46-116); Anion Gap 8.1 mmol/L (3-11); BUN 12 mg/dL (7-18); Bilirubin, Direct 0.3 mg/dL (0.0-0.2); Bilirubin, Total 0.9 mg/dL (0.2-1.0); CO2 24.9 mmol/L (21.0-32.0); CREATININE 0.9 mg/dL (0.70-1.30); Calcium 8.8 mg/dL (8.5-10.1); Chloride 100 mmol/L (98-107); Estimated GFR 90.18 (mL/min/1.73m2); Glucose 106 mg/dL (74-106); Magnesium 2.3 mg/dL (1.8-2.4); Potassium 3.6 mmol/L (3.5-5.1); Sodium 133 mmol/L (136-145); Total Protein 6.1 g/dL (6.4-8.2)
[2023-03-24 06:59] LABS: Absolute Lymphocyte Count 0.79 10^3/uL (1.2-3.4); Absolute Monocyte Count 0.09 10^3/uL (0.1-0.8); Absolute Neutrophil Count 3.52 10^3/uL (1.2-6.7); Atypical Lymphocytes % 13; Bands % 1; Platelet Count 47 10^3/uL (130-400)
[2023-03-24 07:00] LABS: Diff Comment Manual Differential; RBC Morphology Normal
[2023-03-24 07:02] LABS: Folate 14.9 ng/mL (8.6-20.0); Vitamin B12 518 pg/mL (193-986)
[2023-03-24] MEDS: Thiamine 100 MG TAB PO (08:00)
[2023-03-24] MEDS: Multivitamin w/Minerals TAB 1 TAB PO (08:00)
[2023-03-24] MEDS: amLODIPine 2.5 MG TAB 5 MG PO (08:01)
[2023-03-24 08:24] LABS: Lab Add On Test DONE
[2023-03-24 08:27] VITALS: BP 143/83; PULSE 73; RESP 17; TEMP 37.3; O2SAT 100
[2023-03-24] MEDS: DOXYCYCLINE 100 MG in Normal Saline 100 ML IVPB ×2 (08:30→19:50)
[2023-03-24 08:41] LABS: C-Reactive Protein 10.73 mg/dL (0.0-0.3)
[2023-03-24 08:41] LABS: LDH 289 U/L (85-227)
[2023-03-24 08:42] LABS: Mono Screening Negative (Negative)
[2023-03-24 09:05] LABS: INR 1.2 (0.9-1.1); Prothrombin Time 11.6 sec (9.1-11.1)
[2023-03-24 09:08] LABS: Source Nasal/Nares
[2023-03-24 09:25] LABS: D-Dimer 4781 ng/mlFEU (<500)
[2023-03-24 09:47] LABS: COVID-19 PCR Negative (Negative)
[2023-03-24] MEDS: Lactated Ringers 1,000 ML 125 ML IV (10:29)
--- NOTE | 2023-03-24 10:44 | PDOC.CMPRO ---
Date of service: 03/24/23 Time of Service: 10:44 Care Management Progress Note Progress Note Text Progress Note Text: S/O:Arnulfo was sitting up in bed visiting with his , daughter and 2 granddaughters. He reported feeling great. He had informed the provider that he would really like to go home and go hunting. He was told that if he did so it would ne against medical advice. Yesterday some financial concerns were raised by Arnulfo and his but they declined to complete paperwork for any kind of assistance. Arnulfo continues to have fevers as high as 40 degrees C. Additionally, his platelet has been dropping each day to a low of 47 today. He is undergoing testing for tickborne illnesses, among other things, and is receiving doxycycline IV. A: Arnulfo is a 73 year old man admitted on 03/22/23 with hyponatremia P:Arnulfo will likely return home with no new services when medically cleared by provider. He will follow up with his PCP and plan of care and transport with family. CM will support Arnulfo's discharge planning needs.
[2023-03-24 10:49] LABS: Lyme Ab w Rflx to Lyme Confirm Positive (Negative)
[2023-03-24 11:59] VITALS: BP 131/76; PULSE 72; RESP 18; TEMP 36.5; O2SAT 98
[2023-03-24 15:24] LABS: Lyme IgG Ab Negative (Negative); Lyme IgM Ab Negative (Negative)
[2023-03-24 15:53] VITALS: BP 147/74; PULSE 84; RESP 17; TEMP 36.5; O2SAT 97
--- NOTE | 2023-03-24 17:02 | W.PM.PROGNOT ---
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 His Thrombocytopenia, hyponatremia, and abnormal LFTs would all go along with this. Additionally, he defervesced since being on doxycycline. MRSA nares and blood cultures are negative - vancomycin d/c'ed. Remains on cefepimee Tick studies are pending. Continue doxycycline/cefepime for now. Qualifiers: Fever type: unspecified Qualified Code(s): R50.9 - Fever, unspecified (2) Hyponatremia: Status: Acute Assessment and plan: Improved. Continue IVF. He still does look clinically dehydrated. (3) Thrombocytopenia: Status: Chronic Assessment and plan: Worse. 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 HIT studies are still pending as well. Chemical DVT ppx is on hold. Continue to monitor platelets. (4) Hypertension: Status: Chronic Assessment and plan: Started on amlodipine yesterday. Bps have been in 120s-150s systolic. Qualifiers: Hypertension type: primary hypertension Qualified Code(s): I10 - Essential (primary) hypertension (5) Alcohol use: Status: Acute Assessment and plan: The patient states he stopped drinking recently. He does not have any evidence of alcohol withdrawal. Supplement thiamine, MVI. (6) Hyperbilirubinemia: Status: Acute Assessment and plan: US abdomen with mild hepatic steatosis. No evidence of cirrhosis. (7) Dehydration: Status: Acute Assessment and plan: Continue IVF. (8) Discharge planning issues: Status: Acute Assessment and plan: Full code I have expressed the patient's financial concerns to care management who will address them with the patient. Anticipate discharge home in the next 24-48 hrs. (9) DVT prophylaxis: Status: Acute Assessment and plan: SCDs Hold chemical DVT ppx in light of thrombocytopenia Subjective Subjective Interval history since last seen: Feels better today. Had an appetite. Denied dizziness, CP, SOB, n/v. He does tell me again how he recently had to skin a deer and that there were many ticks crowling on the floor and that he thinks he scratched one off of himself. He then shows me what looks like a tick bite site on his abdomen. Exam Narrative Exam Narrative: General: Middle-aged male who looks better, A&Ox3, [place] HEENT: EOMI, MMM Heart: RRR, subtle [place] Lungs: CTAB Abdomen: soft, nontender, nondistended; tick bite epigastrium. Extremities: no edema BLEs Objective Last Vital Signs Temp 36.5 C 03/24/23 15:53 Pulse 84 03/24/23 15:53 Resp 17 03/24/23 15:53 BP 147/74 H 03/24/23 15:53 Pulse Ox 97 03/24/23 15:53 Laboratory Results - last 24 hr 03/23/23 03/23/23 03/23/23 08:20 16:51 18:01 WBC RBC Hgb Hct MCV MCH MCHC RDW Plt Count MPV Immature Gran % Neutrophils % Band Neutrophils % Lymphocytes % Atypical Lymphs % Monocytes % Eosinophils % Basophils % Nucleated RBC % Absolute Neutrophils Absolute Lymphocytes Absolute Monocytes Absolute Eosinophils Absolute Basophils RBC Morphology PT INR APTT D-Dimer Sodium 127 L Potassium Chloride Carbon Dioxide Anion Gap BUN Creatinine Est GFR (CKD-EPI 2020) Glucose Calcium Magnesium Total Bilirubin Conjugated Bilirubin AST ALT Alkaline Phosphatase Lactate Dehydrogenase C-Reactive Protein Total Protein Albumin Vitamin B12 Folate Vancomycin Trough B.burgdorferi IgG Negative B.burgdorferi IgM Negative Lyme Disease Antibody Positive A Lyme Ab Interpretation See Comment COVID-19 Source SARS-CoV-2 (PCR) Monoscreen MRSA (TEM-PCR) Negative Add-On Test Request 03/24/23 03/24/23 03/24/23 05:50 05:55 06:00 WBC 4.40 RBC 4.55 Hgb 14.5 Hct 40.7 MCV 90 MCH 31.9 MCHC 35.6 RDW 11.7 L Plt Count 47 L D MPV 10.3 Immature Gran % 0.0 Neutrophils % 79.0 Band Neutrophils % 1 Lymphocytes % 5.0 Atypical Lymphs % 13 Monocytes % 2.0 Eosinophils % 0.0 Basophils % 0.0 Nucleated RBC % 0.0 Absolute Neutrophils 3.52 Absolute Lymphocytes 0.79 L Absolute Monocytes 0.09 L Absolute Eosinophils 0.00 Absolute Basophils 0.00 RBC Morphology Normal PT INR APTT D-Dimer Sodium 133 L Potassium 3.6 Chloride 100 Carbon Dioxide 24.9 Anion Gap 8.1 BUN 12 Creatinine 0.9 Est GFR (CKD-EPI 2020) 90.18 Glucose 106 Calcium 8.8 Magnesium 2.3 Total Bilirubin 0.9 Conjugated Bilirubin 0.3 H AST 45 H ALT 38 Alkaline Phosphatase 62 Lactate Dehydrogenase 289 H C-Reactive Protein 10.73 H Total Protein 6.1 L Albumin 2.6 L Vitamin B12 518 Folate 14.9 Vancomycin Trough < 0.8 L B.burgdorferi IgG B.burgdorferi IgM Lyme Disease Antibody Lyme Ab Interpretation COVID-19 Source SARS-CoV-2 (PCR) Monoscreen Negative MRSA (TEM-PCR) Add-On Test Request DONE 03/24/23 03/24/23 03/24/23 08:18 08:45 09:00 WBC RBC Hgb Hct MCV MCH MCHC RDW Plt Count MPV Immature Gran % Neutrophils % Band Neutrophils % Lymphocytes % Atypical Lymphs % Monocytes % Eosinophils % Basophils % Nucleated RBC % Absolute Neutrophils Absolute Lymphocytes Absolute Monocytes Absolute Eosinophils Absolute Basophils RBC Morphology PT Cancelled 11.6 H INR Cancelled 1.2 H APTT 29.0 D-Dimer 4781 H Sodium Potassium Chloride Carbon Dioxide Anion Gap BUN Creatinine Est GFR (CKD-EPI 2020) Glucose Calcium Magnesium Total Bilirubin Conjugated Bilirubin AST ALT Alkaline Phosphatase Lactate Dehydrogenase C-Reactive Protein Total Protein Albumin Vitamin B12 Folate Vancomycin Trough B.burgdorferi IgG B.burgdorferi IgM Lyme Disease Antibody Lyme Ab Interpretation COVID-19 Source Nasal/Nares SARS-CoV-2 (PCR) Negative Monoscreen MRSA (TEM-PCR) Add-On Test Request PAWSS Have you Been Recently Intoxicated or Drunk Within the Last 30 days?: No Have you Ever Experienced Previous Episodes of Alcohol Withdrawal?: No Have you ever Experienced Withdrawal Seizures?: No Have you ever Experienced Delirium Tremens(DT)s?: No Have you ever undergone Alcohol Rehabilitation Treatment (i.e, inpt ot outpatient treatment programs)?: No Have you ever Experienced Blackouts?: No Have you ever Combined Alcohol with other Downers within the last 90 days?: No Have you ever Combined Alcohol with any other Substance of Abuse during the last 90 days?: No Result: 0 Time Spent with Patient Time Spent with Patient: 35-49 minutes Time was spent: preparing to see the patient(eg.review tests), obtaining and/or reviewing separately otained hiistory, ordering medications,tests, procedures, referring, communicating with other health healthcare applications analyst, indepentently interpreting results, counseling the patient and care coordination
[2023-03-24 17:27] LABS: Fibrinogen 459 mg/dL (171-384)
[2023-03-24] MEDS: Normal Saline Flush 10 ML SYR IVP (19:49)
[2023-03-24 20:19] VITALS: BP 138/70; PULSE 78; RESP 20; TEMP 36.8; O2SAT 96
[2023-03-24 23:32] VITALS: BP 161/84; PULSE 78; RESP 20; TEMP 36.3; O2SAT 98
[2023-03-25] MEDS: CEFEPIME 2 GM in Normal Saline 100 ML IVPB ×2 (01:11→10:31)
[2023-03-25] MEDS: Lactated Ringers 1,000 ML 125 ML IV (01:12)
[2023-03-25 03:34] VITALS: BP 155/90; PULSE 77; RESP 20; TEMP 36.2; O2SAT 98
[2023-03-25 07:34] LABS: ALT 33 U/L (16-63); AST 34 U/L (15-37); Albumin 2.5 g/dL (3.4-5.0); Alkaline Phosphatase 58 U/L (46-116); Anion Gap 6.9 mmol/L (3-11); BUN 9 mg/dL (7-18); Bilirubin, Direct 0.2 mg/dL (0.0-0.2); Bilirubin, Total 0.7 mg/dL (0.2-1.0); C-Reactive Protein 5.49 mg/dL (0.0-0.3); CO2 25.1 mmol/L (21.0-32.0); CREATININE 0.7 mg/dL (0.70-1.30); Calcium 8.3 mg/dL (8.5-10.1); Chloride 101 mmol/L (98-107); Estimated GFR 97.29 (mL/min/1.73m2); Glucose 96 mg/dL (74-106); Potassium 3.4 mmol/L (3.5-5.1); Sodium 133 mmol/L (136-145); Total Protein 5.6 g/dL (6.4-8.2)
[2023-03-25 07:36] VITALS: BP 127/83; PULSE 85; RESP 24; TEMP 36.4; O2SAT 100
[2023-03-25 07:46] LABS: Abs Immature Grans 0.01 10^3/uL (0.0-0.06); Absolute Monocyte Count 0.55 10^3/uL (0.1-0.8); HCT 38.6 % (40.0-50.0); HGB 13.9 g/dL (13.5-17.5); MCH 31.9 pg (27.0-33.0); MCV 89 fL (80-95); MPV 12.2 fL (8.0-11.0); RBC 4.36 10^6/uL (4.36-5.78); RDW 11.9 % (11.8-14.1); RDW-SD 38.3 fL; WBC 3.96 10^3/uL (4.4-10.8)
[2023-03-25] MEDS: amLODIPine 2.5 MG TAB 5 MG PO (08:56)
[2023-03-25] MEDS: Multivitamin w/Minerals TAB 1 TAB PO (08:57)
[2023-03-25] MEDS: Thiamine 100 MG TAB PO (08:57)
[2023-03-25 09:03] LABS: Bands % 0; Platelet Count 39 10^3/uL (130-400)
[2023-03-25 09:04] LABS: Absolute Basophil Count 0.04 10^3/uL (0.0-0.2); Absolute Eosinophil Count 0.08 10^3/uL (0.0-0.7); Absolute Lymphocyte Count 1.94 10^3/uL (1.2-3.4); Absolute Neutrophil Count 1.35 10^3/uL (1.2-6.7); Atypical Lymphocytes % 9; Diff Comment Manual Differential; RBC Morphology Normal
[2023-03-25] MEDS: DOXYCYCLINE 100 MG in Normal Saline 100 ML IVPB (09:05)
[2023-03-25 11:27] VITALS: BP 158/84; PULSE 77; RESP 18; TEMP 36.6; O2SAT 98
--- NOTE | 2023-03-25 14:11 | DSE_ITS ---
Date of service: 03/25/23 Time of Service: 14:11 DS: Diagnosis Discharge Diagnosis (1) Fever: Status: Resolved Asessment and Plan: secondary to Lyme's disease +/- Anaplasmosis (further tick studies results to follow). Patient to take doxycycline 100 mg bid x 14 days. (2) Hyponatremia: Status: Acute Asessment and Plan: resolved (3) Thrombocytopenia: Status: Chronic Asessment and Plan: unresolved. Still low at 39,000. Antiplatelet antibodies are still pending at this time but likely d/t tick infection rather than the enoxaparin as he never received the enoxaparin, it was stopped before he was given it. (4) Hypertension: Status: Suspected Asessment and Plan: This has not been firmly diagnosed as his BP were labile while he was acutely ill. This needs rechecked on an outpatient basis. (5) Alcohol use: Status: Acute Asessment and Plan: this was confirmed w/ his who indicated that he drinks several beers per day on a daily basis even though he minimizes his alcohol use. He should be referred for outpatient counseling/process coach. (6) Hyperbilirubinemia: Status: Acute (7) Dehydration: Status: Acute Asessment and Plan: resolved. Discharge Plan Disposition Patient Disposition: Home Condition: Improving Discharge Details Reason For Visit: hyponatremia Admit Date/Time: 03/22/23 19:04 Admit Provider: Von Rm Attending Provider: Von Rm [facility] Hospital Course: 73 yo M with no known chronic medical history, but who hasn't had medical care in over 10 years, presented to [facility] earlier on the day of admission with 1-2 weeks of feeling cloudy headed and low energy. Upon arrival he was feeling some shakiness and warmth, did not feel an overt fever, but tempurature documented at 102.9. He was given 400mg of ibuprofen and sent to the ED. He cannot identify a trigger for his symptoms. No change in activity or diet. He did cut back on his usual alcohol since he started feeling off, has only had 1-2 beers during the past week rather than his usual 3-4/night and has been drinking more water instead. He has never had withdrawal symptoms. He had not abnormal movement or tremor today. No headache, cold symptoms, or other signs of focal infection. Workup included routine labs (CBC, CMP, d-dimer, protime, VBG, lactate, CRP, LDH) as well as blood, urine cultures and TICK panel, and heparin antibodies and antithrombin III. He also had head CT, CXR and abdominal US. CXR and head CT showed no acute abnormality and abdominal US was done to look at the liver which demonstrated fatty liver changes but no cirrhosis. Initial CBC was unremarkable but serial CBC showed a decline in his WBC down to 3960, and platelets dropped to 39,000 at the time of his discharge. However he had no overt bleeding. Initially he was put on enoxaparin for dvt prophylaxis bu t this was stopped when his platelets dropped the morning after admission to 101,000 from admission level of 152,000. Blood and urine cultures came back no growth to date. He was initially put on cefepime and vancomycin and doxycycline although it was unclear as to what he was being treated although he was afebrile on admission his fever went up to 40.3 on the morning of 03/23. The doxycycline was not added until the morning of 03/23. 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 Tick panel had been sent off the morning of 03/23 and came back positive for Lyme by the confirmation test. However the rest of his tick panel is still pending including Babesiosis, Ehrlichiosis and Anaplasmosis. His fevers defervesced and at the time of his discharge his T max had been 37.3 C over past 24 hours and at discharge was 36.6. His acute confusion had cleared. He was desiring to return home. As his pharmacy, [facility] was closed on , he was sent home w/ 36 hours worth of treatment w/ doxycycline but an Rx was sent to [facility] in [facility] for 14 day course of doxycycline 100 mg bid. He is told to avoid any alcohol consumption given his thrombocytopenia and fatty liver changes. he need repeat CMP and CBC within the next week. His is told to monitor his blood pressure and his temperature. His BP was labile while in the hospital but he denies any hx of hypertension. At discharge his BP was 158/84. He is to follow up w/ his PCP next week. Home Meds and New Rx's Prescriptions: New doxycycline hyclate 100 mg tablet 100 mg PO BID 14 Days Qty: 28 0RF Discharge Instructions Instructions: Doxycycline (By mouth), Lyme Disease (GEN) Stand Alone Forms: Nursing Discharge Form Referrals: Jeimy Rodriguez [NURSE PRACTITIONER] - (patient needs follow up CBC, CMP to monitor LFT, electrolytes and platelets, patient needs post hospital visit next week (week of 03/29)) Activity:: Activity as Tolerated Equipment/Supplies:: No Equipment Needed Diet:: Normal Diet Discharge Orders Discharge Orders: Discharge Order (Routine); Ordered 03/25/23 Ordered By: Ancelmo Marmolejo Other Ambulatory Orders: Complete Blood Count w/Diff (Routine) Timeframe: 1 Week Facility: [facility] - Location: Laboratory Outpatient - [facility] Ordered By: Ancelmo Marmolejo Comprehensive Metabolic Panel (Routine) Timeframe: 1 Week Facility: [facility] - Location: Laboratory Outpatient - [facility] Ordered By: Ancelmo Marmolejo Discharge Data Discharge Date/Time-TO BE ENTERED AT DEPARTURE: 03/25/23 14:50 DS: Summary Time Spent with Patient providing and/or coordinating discharge services: Less than 30 minutes Specific discharge activities: Interview/exam of patient; review of discharge instructions, completion of prescriptions/discharge instructions; discussion w/ nursing and CM; documentation of hospital visit Status at Discharge Functional status at discharge: independent ambulation Overall status at discharge: patient is back to baseline Mental Status: mental status grossly normal Speech and Movement: speech and movement normal Mood: congruent mood Affect: normal affect Exam Narrative Exam Narrative: Patient alert and oriented x4 HEENT: Atraumatic normocephalic, pupils equally round reactive to light and accommodation, extraocular motion intact, TMs intact, nares moist and patent without exudate or bleeding, oropharynx noninjected without exudate Neck: Supple, nontender, without thyromegaly or lymphadenopathy or JVD. Normal carotid pulses Lungs: Clear to auscultation and percussion Heart: Regular rate and rhythm without murmur rub or gallop. Normal apical impulse Abdomen: Nondistended, normal bowel sounds, nontender to palpation or percussion, no organomegaly, no bruits, no palpable masses Extremities: Normal range of motion with normal strength. No peripheral cyanosis or edema. Normal pulses Psych Mental Status: mental status grossly normal Speech and Movement: speech and movement normal Mood: congruent mood Affect: normal affect DS: Data Vitals/I&O Vitals and I&O: Vital Signs Temperature 36.6 C 03/25/23 11:27 Temperature Source Tympanic 03/25/23 11:27 Pulse 77 03/25/23 11:27 Pulse Rhythm Regular 03/25/23 12:57 Pulse 67 03/22/23 20:10 Respiratory Rate 18 03/25/23 11:27 Respiratory Effort Normal, Non-Labored 03/25/23 12:57 Respiratory Depth Normal 03/25/23 12:57 Respiratory Pattern Normal 03/25/23 12:57 Blood Pressure 158/84 H 03/25/23 11:27 Blood Pressure Mean 93 03/22/23 18:02 Blood Pressure Position Sitting 03/22/23 16:46 Pulse Oximetry 98 03/25/23 11:27 Oxygen Delivery Method Room Air 03/25/23 11:27 Oxygen Flow Rate 0 03/25/23 11:27 Pain Level 0 03/25/23 11:27 Comment bp called over radio 03/24/23 08:27 Intake & Output 03/24/23 03/25/23 03/25/23 23:59 11:59 23:59 Intake Total 940 / 2240 987.5 / 2187.5 1200 / 2187.5 Output Total 775 / 775 1600 / 1900 300 / 1900 Balance 165 / 1465 -612.5 / 287.5 900 / 287.5 Intake: IV 500 / 1800 987.5 / 2187.5 1200 / 2187.5 Oral 440 / 440 Output: Urine 775 / 775 1600 / 1900 300 / 1900 Other: Urine Color Yellow Yellow Yellow Urine Appearance Clear Clear Clear Urine Odor Normal Normal Voiding Methods Urinal Urinal Data Completed and Pending Labs on day of discharge: Labs from last 24 hours 03/25/23 03/23/23 06:32 08:20 WBC 3.96 L RBC 4.36 Hgb 13.9 Hct 38.6 L MCV 89 MCH 31.9 MCHC 36.0 RDW 11.9 Plt Count 39 L MPV 12.2 H Immature Gran % See Differential Neutrophils % 34.0 Band Neutrophils % 0 Lymphocytes % 40.0 Atypical Lymphs % 9 Monocytes % 14.0 Eosinophils % 2.0 Basophils % 1.0 Nucleated RBC % 0.0 Absolute Neutrophils 1.35 Absolute Lymphocytes 1.94 Absolute Monocytes 0.55 Absolute Eosinophils 0.08 Absolute Basophils 0.04 RBC Morphology Normal Sodium 133 L Potassium 3.4 L Chloride 101 Carbon Dioxide 25.1 Anion Gap 6.9 BUN 9 Creatinine 0.7 Est GFR (CKD-EPI 2020) 97.29 Glucose 96 Calcium 8.3 L Magnesium 2.0 Total Bilirubin 0.7 Conjugated Bilirubin 0.2 AST 34 ALT 33 Alkaline Phosphatase 58 C-Reactive Protein 5.49 H Total Protein 5.6 L Albumin 2.5 L Procalcitonin 1.0 B.burgdorferi IgG Negative B.burgdorferi IgM Negative Lyme Disease Antibody Positive A Lyme Ab Interpretation See Comment Preliminary micro results at discharge 03/22/23 17:25 Blood Culture - Preliminary Blood NO GROWTH 48 HOURS 03/22/23 17:05 Blood Culture - Preliminary Blood NO GROWTH 48 HOURS PFSH All Active Problems (Updated 03/25/23 @ 23:19 by Ancelmo Marmolejo MD) Hypokalemia (Acute) Thrombocytopenia (Chronic) Dehydration (Acute) Hyperbilirubinemia (Acute) Alcohol use (Acute) Discharge planning issues (Acute) DVT prophylaxis (Acute) Hyponatremia (Acute) Surgical History Status post left shoulder hemiarthroplasty Family History Mother Cancer from cancer in brain, from lungs? Father Alcohol use disorder Social History Smoking/Tobacco Use Status: Never Smoking risk assessment performed?: Yes Alcohol Intake: current Alcohol Intake frequency: a few times a week Alcohol type: beer Drug use: Never Substance use type: does not use Housing: house Do you feel safe at home: Yes Do you feel safe in your relationship?: Yes Additional Social history: Lives with Nova on [address]. Retired from working at [employer]. Has a small farm Time Spent with Patient Time Spent with Patient: <45 minutes Time was spent: preparing to see the patient(eg.review tests), ordering medications,tests, procedures, indepentently interpreting results, counseling the patient and care coordination
[2023-03-25 22:32] LABS: Anaplasma phagocytophilum Positive (Negative); B. miyamotoi PCR Negative (Negative); Babesia divergens/MO-1 Negative (Negative); Babesia duncani Negative (Negative); Babesia microti Negative (Negative); Ehrlichia chaffeensis Negative (Negative); Ehrlichia ewingii/canis Negative (Negative); Ehrlichia muris eauclairensis Negative (Negative)
[2023-03-26 13:55] LABS: Antithrombin Activity, Plasma 61 % (80 - 130)
[2023-03-26 20:37] LABS: HIT ELISA 0.055 OD (<0.400); HIT Interpretation Negative (Negative)
== END 2023-03-25 14:50 | disposition home or self-care (01) | DRG 868 ==
LOC: ER 19:27 → MS 20:57
PROVIDERS: Internal Medicine; Admitting Provider Family Medicine; Emergency Provider Emergency Medicine; PCP Nurse Practitioner Family; Visit Provider Family Medicine
DX: A69.20 Lyme disease, unspecified (principal); E87.1 Hypo-osmolality and hyponatremia; R50.9 Fever, unspecified; I10 Essential (primary) hypertension; F10.90 Alcohol use, unspecified, uncomplicated; D69.6 Thrombocytopenia, unspecified; E86.0 Dehydration; K76.0 Fatty (change of) liver, not elsewhere classified
CPT/HCPCS: 00123; 36415; 36416; 80048; 80053; 80076; 82805; 82962; 84145; 85300; 85384; 86022; 86617; 87040; 87635; 87637; 87641; 87798; 96365; 96366; 99285; 70450; 71045; 76700; 80202; 80320; 81003; 81015; 82565; 82607; 82746; 83605; 83615; 83735; 84295; 84300; 84443; 84484; 85025; 85379; 85610; 85730; 86140; 86308; 86618; 87086; 99232; 99233; 99238

== ENCOUNTER 2023-03-31 14:16 | Outpatient (REF) | payer SELFPAY ==
[2023-03-31 20:19] LABS: Abs Immature Grans 0.14 10^3/uL (0.0-0.06); Absolute Basophil Count 0.06 10^3/uL (0.0-0.2); Absolute Eosinophil Count 0.12 10^3/uL (0.0-0.7); Absolute Lymphocyte Count 2.74 10^3/uL (1.2-3.4); Absolute Neutrophil Count 1.64 10^3/uL (1.2-6.7); Basophils % 1.1; Eosinophils % 2.1; HCT 43.3 % (40.0-50.0); HGB 14.7 g/dL (13.5-17.5); Immature Grans % 2.5; Lymphocytes % 48.9; MCHC 33.9 % (32.0-36.0); MCV 91 fL (80-95); MPV 10.3 fL (8.0-11.0); Monocytes % 16.1; Neutrophils % 29.3; Platelet Count 245 10^3/uL (130-400); RBC 4.74 10^6/uL (4.36-5.78); RDW 12.3 % (11.8-14.1); RDW-SD 41.2 fL
[2023-03-31 20:32] LABS: ALT 46 U/L (16-63); AST 25 U/L (15-37); Albumin 3.4 g/dL (3.4-5.0); Alkaline Phosphatase 74 U/L (46-116); Anion Gap 4.7 mmol/L (3-11); BUN 4 mg/dL (7-18); Bilirubin, Total 0.4 mg/dL (0.2-1.0); CO2 30.3 mmol/L (21.0-32.0); CREATININE 0.8 mg/dL (0.70-1.30); Calcium 9.3 mg/dL (8.5-10.1); Chloride 102 mmol/L (98-107); Estimated GFR 93.45 (mL/min/1.73m2); Glucose 108 mg/dL (74-106); Potassium 4.3 mmol/L (3.5-5.1); Sodium 137 mmol/L (136-145)
== END 2023-03-31 14:17 | disposition home or self-care (01) ==
LOC: NCHCN 14:16
PROVIDERS: Internal Medicine; PCP Nurse Practitioner Family; Visit Provider Physician Assistant Medical
DX: E86.0 Dehydration (principal); E87.1 Hypo-osmolality and hyponatremia; E87.6 Hypokalemia; D69.6 Thrombocytopenia, unspecified; R50.9 Fever, unspecified
CPT/HCPCS: 80053; 85025

== ENCOUNTER 2023-06-07 11:38 | Outpatient (REF) | payer MEDICARE, SELFPAY ==
[2023-06-07 16:16] LABS: Anion Gap 7.6 mmol/L (3-11); BUN 6 mg/dL (7-18); CO2 27.4 mmol/L (21.0-32.0); CREATININE 0.9 mg/dL (0.70-1.30); Calcium 9.2 mg/dL (8.5-10.1); Chloride 101 mmol/L (98-107); Estimated GFR 90.18 (mL/min/1.73m2); Glucose 111 mg/dL (74-106); Potassium 4.4 mmol/L (3.5-5.1); Sodium 136 mmol/L (136-145)
== END 2023-06-07 11:39 | disposition home or self-care (01) ==
LOC: NCHCN 11:38
PROVIDERS: PCP Nurse Practitioner Family; Visit Provider Physician Assistant Medical
DX: I10 Essential (primary) hypertension (principal)
CPT/HCPCS: 80048

== ENCOUNTER 2024-09-13 03:24 | Outpatient (CLI) | payer MEDICARE, SELFPAY ==
[2024-09-13 13:07] LABS: Abs Immature Grans 0.03 10^3/uL (0.0-0.06); Absolute Basophil Count 0.05 10^3/uL (0.0-0.2); Absolute Eosinophil Count 0.14 10^3/uL (0.0-0.7); Absolute Lymphocyte Count 2.28 10^3/uL (1.2-3.4); Absolute Monocyte Count 0.72 10^3/uL (0.1-0.8); Basophils % 0.6 %; Eosinophils % 1.7 %; HCT 43.8 % (40.0-50.0); HGB 15.6 g/dL (13.5-17.5); Immature Grans % 0.4 %; Lymphocytes % 28.1 %; MCH 30.6 pg (27.0-33.0); MCHC 35.6 % (32.0-36.0); MCV 86 fL (80-95); MPV 8.9 fL (8.0-11.0); Monocytes % 8.9 %; Neutrophils % 60.3 %; Platelet Count 219 10^3/uL (130-400); RDW 11.9 % (11.8-14.1); RDW-SD 37.2 fL; WBC 8.12 10^3/uL (4.4-10.8)
[2024-09-13 13:49] LABS: ALT 19 U/L (16-63); AST 17 U/L (15-37); Alkaline Phosphatase 88 U/L (46-116); Anion Gap 5.1 mmol/L (3-11); BUN 11 mg/dL (7-18); Bilirubin, Total 0.7 mg/dL (0.2-1.0); CO2 29.9 mmol/L (21.0-32.0); CREATININE 0.9 mg/dL (0.70-1.30); Calculated LDL 91 mg/dL (<100); Chloride 98 mmol/L (98-107); Cholesterol 154 mg/dL (<200); Estimated GFR 89.62 (mL/min/1.73m2); Glucose 123 mg/dL (74-106); HDL Cholesterol 48 mg/dL (>or=40); Potassium 3.9 mmol/L (3.5-5.1); Sodium 133 mmol/L (136-145); Total Protein 6.6 g/dL (6.4-8.2); Triglyceride 79 mg/dL (<150)
== END 2024-09-13 03:25 | disposition home or self-care (01) ==
LOC: LBO 03:24
PROVIDERS: Visit Provider Physician Assistant Medical
DX: I10 Essential (primary) hypertension (principal); K76.0 Fatty (change of) liver, not elsewhere classified
CPT/HCPCS: 36415; 80053; 80061; 85025